=== PATIENT | female | born 1960 | race Hispanic/Latino ===

== ENCOUNTER → 2018-01-10 | Outpatient (CLI) | payer BC ==
[~2018-01-10] MED LIST: IOPAMIDOL 370 MG/ML 200 ML INFUS..BTL INJ ONE; SODIUM CHLORIDE 0.9% 50ML 50 ML ONE
--- NOTE | 2018-01-10 13:34 | Diagnostic Imaging Report ---
EXAM: CT of the abdomen and pelvis WITH contrast HISTORY: CHRONIC ABD PAIN COMPARISON: None. TECHNIQUE: The abdomen and pelvis were scanned utilizing a multidetector helical scanner. Coronal and sagittal reformats are provided. PROTOCOL: Routine IV CONTRAST: 100 cc of Isovue-370. ORAL CONTRAST: Water RADIATION DOSE: Total DLP: 784.96 mGy*cm Estimated effective dose: (DLP x 0.015 x size factor) Dose modulation, iterative reconstruction, and/or weight based adjustment of the mA/kV was utilized to reduce the radiation dose to as low as reasonably achievable. COMPLICATIONS: None FINDINGS: LOWER THORAX: Bibasilar atelectasis. A small sliding hiatal hernia. HEPATOBILIARY: Diffusely decreased attenuation of the liver relative to the spleen. No focal hepatic lesions. No biliary ductal dilatation. Metallic clips in the right upper quadrant of the abdomen are compatible with prior cholecystectomy. SPLEEN: No splenomegaly. PANCREAS: No focal masses or ductal dilatation. Diffuse parenchymal atrophy of the pancreas. ADRENALS: No discrete adrenal nodule. KIDNEYS/URETERS: No hydronephrosis, stones, or solid mass lesions. PELVIC ORGANS/BLADDER: The uterus is anteflexed. The urinary bladder is partially decompressed, limiting evaluation. PERITONEUM / RETROPERITONEUM: No free air or fluid. LYMPH NODES: No pathologically enlarged lymph node. VESSELS: Unremarkable. GI TRACT: No distention or wall thickening identified. The appendix is normal. BONES: No aggressive osseous lesion or acute fracture. SOFT TISSUES: A fat-containing umbilical hernia, the neck measures 2 cm (ML) x 1.5 cm (CC). Bilateral fat-containing inguinal hernias, right greater than left. IMPRESSION: 1. Fat-containing umbilical and bilateral inguinal hernias, without associated inflammatory changes. 2. Hepatic steatosis. Signed by: Dr. Zev Fink D.O., M.M.M. on 01/10/2018 1:31 PM
== END ==
LOC: CT 10:02
PROVIDERS: ATTEND Family Medicine
DX: R10.9 Unspecified abdominal pain (principal)
CPT/HCPCS: 74177; Q9967

== ENCOUNTER → 2018-03-28 | Outpatient (CLI) | payer BC ==
--- NOTE | 2018-03-28 10:25 | Diagnostic Imaging Report ---
PROCEDURE: X-RAY UPPER GI SERIES WITH AIR CONTRAST FLUOROSCOPY TIME: ONE MINUTE Air Kerma: 59.57 mGy Technique: Effervescent crystals and barium were ingested the mouth and multiple fluoroscopic images of the esophagus, stomach, and proximal small bowel were obtained. COMPARISON: CT abdomen and pelvis with contrast performed 01/10/2018. INDICATIONS: Dysphagia FINDINGS: ESOPHAGUS: Motility: Within normal limits. Mucosa: Unremarkable. Distensibility: Normal. GASTROESOPHAGEAL JUNCTION: No evidence of hiatal hernia. GASTROESOPHAGEAL REFLUX: Mild reflux into the lower third of the esophagus. STOMACH: Normally distensible and demonstrates normal contours and mucosal pattern. DUODENUM: Bulb and sweep are normal. Duodenal-jejunal junction is in the normal expected position. IMPRESSION: Mild gastroesophageal reflux; otherwise unremarkable biphasic upper GI examination. Dictated by: Huang Christina M.D. on 03/28/2018 at 10:36 Electronically approved by: Huang Christina M.D. on 03/28/2018 at 10:36
== END ==
LOC: DX 09:07
PROVIDERS: ATTEND Family Medicine
DX: K21.9 Gastro-esophageal reflux disease without esophagitis (principal)
CPT/HCPCS: 74246

== ENCOUNTER → 2020-09-18 | Outpatient (CLI) | payer BC | LOC: RAD 12:07 | PROVIDERS: ATTEND Family Medicine | DX: R07.81 Pleurodynia (principal) | CPT/HCPCS: 71101 ==